=== PATIENT | female | born 1975 | race Caucasian/White ===

== ENCOUNTER 2016-11-12 15:07 | Emergency (ER) | payer SELFPAY ==
[~2016-11-12 15:07] MED LIST: COLACE100 MG PO; IRON325 M1 PO; MOTRIN-DPS800 MG PO; NEWMANS NIPPLE CREAM TP; PERCOCET PO; PRENATAL VIT1 TAB PO
--- NOTE | 2016-11-16 16:34 | ER ---
ADMIT: 11/12/2016 RM/LOC: ER [facility] MR#: [id number] [address] [id number] JONES CATY, ADALID M [address] [place] [address] Emergency Room Report SEX: F AGE: 41 : 1975 DATE: 11/12/2016 ADDENDUM: This patient comes into the ER because she has had pain in her chest for the last 3 days. She denies any heavy lifting or pulling, but it is tender to palpation and tender with movement of her left shoulder. Her lungs are clear. O2 saturation is normal. She did mention that she has had some issues with heavy vaginal bleeding. She is not having bleeding at this moment but does have an appointment to see a manager of community relations. Chest x-ray was negative. EKG showed a normal sinus rhythm. Her hemoglobin was 8.2. DIAGNOSES: 1. Chest wall pain. 2. Anemia. She was given Toradol 60 mg IM. I wrote a prescription for meloxicam and she is to keep her appointment with a manager of community relations. Please see my T-sheet. ALISA Hernández / Larry Zuluaga MD / [place] JOB #: [id number] CC: Larry Zuluaga MD, Attending Physician Nick Hernandez MD, Family Physician
== END 2016-11-12 18:25 | disposition home or self-care (01) ==
LOC: ER 15:07
DX: R07.89 Other chest pain (principal); D64.9 Anemia, unspecified